=== PATIENT | male | born 1980 | race Caucasian/White ===

== ENCOUNTER → 2016-09-28 | Outpatient (CLI) | payer OTHER ==
[~2016-09-28] MED LIST: AMOXIL-DPS500 MG GT; AMOXIL-DPS500 MG PO; ATIVAN-DPS0.5 MG GT; CELECOXIB200 MG PO; DECADRON-DPS4 MG GT; DECADRON-DPS4 MG PO; DIFLUCAN DPS100 MG GT; DULCOLAX-DPS10 MG PR; DULERA 100/58.8 GM IH; DURAGESIC DPS100 MCG TD; DURAGESIC50 MCG TD; EVOXAC30 MG GT; EVOXAC30 MG PO; FIORICET DPS1 TAB GT; LEXAPRO DPS10 MG GT; MOVANTIK25 MG PO; NEXIUM40 MG PO; NILSTAT SUSP DPS5 ML PO; OMEPRAZOLE SUSP GT; PERCOCET 10 DPS1 TAB PO; PROAIR RESPICL90 MCG IH; ROXICODONE5 MG GT; TRENTAL DPS400 MG PO; TYLENOL DPS325 MG GT; VITAMIN E100 UNIT PO; XANAX DPS1 MG PO; XYLOCAINE VISC100 ML PO; [UNRECOGNIZED DRUG - OTHER] PO; [UNRECOGNIZED DRUG - OTHER] PO
== END | disposition home or self-care (01) ==
LOC: RAD.S 10:47
DX: R13.10 Dysphagia, unspecified (principal)